=== PATIENT | female | born 1995 | race African-American/Black ===

== ENCOUNTER 2022-12-15 18:54 | Emergency (ER) | payer OTHER ==
[~2022-12-15] VITALS: Ht 162.6 cm; Wt 72.8 kg
[2022-12-15 18:56] VITALS: BP 121/74; TEMP 100.7; O2SAT 97
[2022-12-15 19:46] LABS: BASO % 0.2 % (0.0-1.0); EOS % 0.2 % (0.0-3.0); HEMATOCRIT 37.3 % (36.0-47.0); HEMOGLOBIN 12.4 g/dl (12.0-15.5); LYMPH # 1.3 10^3/uL (1.5-5.0); LYMPH % 10.2 % (24.0-44.0); MEAN CORPUSCULAR HEMOGLOBIN 30.2 pg (27.0-33.0); MEAN CORPUSCULAR HGB CONC 33.2 g/dl (32.0-36.5); MONO # 0.9 10^3/uL (0.0-0.8); MONO % 7.3 % (2.0-8.0); NEUTROPHILS # 10.5 10^3/uL (1.5-8.5); NEUTROPHILS % 81.8 % (36.0-66.0); PLATELET COUNT, AUTOMATED 182 10^3/uL (150-450); WHITE BLOOD COUNT 12.9 10^3/uL (4.0-10.0)
[2022-12-15 20:04] LABS: ALBUMIN 3.4 G/DL (3.2-5.2); ALKALINE PHOSPHATASE 76 U/L (46-116); ALT/SGPT 24 U/L (7.0-40); AST/SGOT 21 U/L (<34); BILIRUBIN,TOTAL 0.5 MG/DL (0.3-1.2); BLOOD UREA NITROGEN 7 MG/DL (9-23); CALCIUM LEVEL 8.2 MG/DL (8.5-10.1); CARBON DIOXIDE LEVEL 25 MMOL/L (20-31); CHLORIDE LEVEL 106 MMOL/L (98-107); CREATININE FOR GFR 0.81 MG/DL (0.55-1.30); GLOMERULAR FILTRATION RATE > 60.0 (>60); GLUCOSE, FASTING 122 MG/DL (60-100); POTASSIUM SERUM 3.4 MMOL/L (3.5-5.1); SODIUM LEVEL 138 MMOL/L (136-145); TOTAL PROTEIN 6.4 G/DL (5.7-8.2)
[2022-12-15] MEDS ORDERED: FLON1SPR NARES (20:55)
== END 2022-12-15 20:58 | disposition home or self-care (01) ==
LOC: M ED 18:54
DX: B34.8 Other viral infections of unspecified site (principal); H65.02 Acute serous otitis media, left ear; Z79.899 Other long term (current) drug therapy

== ENCOUNTER 2023-03-08 12:19 | Emergency (ER) | payer OTHER ==
[~2023-03-08] VITALS: Ht 162.6 cm; Wt 76.5 kg
[~2023-03-08 12:19] MED LIST: FLON1SPR NARES
[2023-03-08 13:41] LABS: URINE PREG TEST NEGATIVE (NEGATIVE)
[2023-03-08 15:08] LABS: CHLAMYDIA DNA AMPLIFICATION NEGATIVE (NEGATIVE); GC DNA AMPLIFICATION NEGATIVE (NEGATIVE)
[2023-03-08] MEDS ORDERED: METR-265 PO ×2 (18:31→19:20)
[2023-03-08 18:40] VITALS: BP 136/69; TEMP 98.8; O2SAT 99
== END 2023-03-08 18:41 | disposition home or self-care (01) ==
LOC: M ED 12:19
DX: N76.0 Acute vaginitis (principal); Z79.2 Long term (current) use of antibiotics